=== PATIENT | male | born 1950 | race Caucasian/White ===

== ENCOUNTER 2019-03-30 08:01 | Observation (INO) ==
[~2019-03-30 08:01] MED LIST: CEFAZOLIN 1000MG 1,000 MG/7.5 ML SYR IV SCH; CEFAZOLIN 2000MG 2,000 MG/15 ML SYR IV SCH
[2019-03-30] MEDS ORDERED: LACTATED RINGER'S 1,000 ML IV SCH (08:45)
--- NOTE | 2019-03-30 09:19 | History & Physical Bridge Note ---
Date of Service March 30, 2019 History & Physical Bridge Note I have examined the patient, reviewed the History & Physical and in the interval since the performance of the History & Physical I have noted the following changes of clinical significance: no changes noted
--- NOTE | 2019-03-30 09:20 | Pre Anesthesia Assessment ---
Date of Service March 30, 2019 Pre Sedation Assessment Vital Signs Temp Pulse Resp BP Pulse Ox 03/30/19 08:43 36.5 C 67 18 150/88 H 97 Cardiovascular RRR, no murmur, no edema Respiratory normal respiratory effort, lungs clear to auscultation Pre-Sedation Airway Assessment Smoking Status: Former smoker Hx Sleep Apnea: No Hx Difficult Intubation: No Short, Thick Neck: No Thyromental Distance: < 3.5 Finger Breadths Oral Cavity: + WNL Mallampati Class: II ASA: ASA3 NPO Status Date of Last Intake of Fluids: 03/29/19 Date of Last Intake of Solid Food: 03/29/19 Procedure Planning Contraindications for Sedation: none Current Medications Reviewed: Yes Notes The planned sedation has been discussed with the patient. Informed Consent was obtained. I have identified the patient, determined the appropriateness of sedation and have assessed the patient immediately prior to the procedure. All medicine(s) and interventions are by my order.
[2019-03-30] MEDS ORDERED: BUPIVACAINE 0.25% 30 ML VIAL ONE (09:25)
[2019-03-30] MEDS ORDERED: LIDOCAINE HCL 1% 20 ML VIAL ONE (09:25)
[2019-03-30] MEDS ORDERED: BACITRACIN INJ 50,000 UNIT VIAL ONE (09:25)
[2019-03-30] MEDS ORDERED: fentaNYL citrate 100 MCG/2 ML VIAL ONE ×2 (10:27→11:12)
[2019-03-30] MEDS ORDERED: MIDAZOLAM HCL 5 MG/ML 1 ML VIAL ONE ×2 (10:27→11:12)
--- NOTE | 2019-03-30 12:09 | Post Anesthesia Assessment ---
Date of Service March 30, 2019 Post Sedation Assessment Vital Signs Temp Pulse Resp BP Pulse Ox 03/30/19 08:43 36.5 C 67 18 150/88 H 97 Recovery Score Activity: Moves 4 extremities Respiration: Deep Breath/Cough Circulation: +/-20% PreAnes Value Consciousness: Fully Awake Oxygen Saturation: > 92% On Room Air Discharge Sedation Level of Care: Fast Track Phase II Post Sedation Plan On clinical assessment, the patient appears to have tolerated the sedation without complications. Patient is recovering as anticipated. Patient will continue to be monitored by nursing and may be discharged when sedation discharge criteria are met per below protocol. Upon Completions of procedure and additional 15 minutes continue every 5 minute vital signs and the P.A.R. score; then discharge to a Phase I or Fast Track to Phase II per the following guidelines: * Discharge Patient to appropriate Phase II area if PAR is 8 or greater or return to pre- procedure baseline. The post - procedure orders will be as directed. * If PAR score is less than 8 or not return to pre-procedure baseline then patient will follow Phase I monitoring till PAR is reached for Phase II. The Phase I may be done in procedure room or may call to secure a Phase I area. * If naloxone or flumazenil are used for reversal, hold in Phase I for continued monitoring from when last reversal dose was given for a minimum of 60 minutes or longer pending the nurse and/or physician discretion of patient condition before discharge to Phase II. Please call the Sedation Physician to re-evaluate and complete post-note for discharge to Phase II area. Do NOT discharge from procedure sedation or Phase 1 until post- sedation evaluation note is complete by procedure /sedation MD Sedation Discharge Instructions to be given to the patient at discharge to home.
[2019-03-30] MEDS ORDERED: ACETAMINOPHEN 325 MG TAB PO PRN (12:10)
[2019-03-30] MEDS ORDERED: OXYCODONE/ACETAMINOPHEN 5mg/325mg TAB PO PRN (12:10)
--- NOTE | 2019-03-30 12:10 | Operative Report ---
Post Operative Report Pre & Post Diagnosis CHB, PPM at JESSE, RV pacing lead malfunction Operation Date: 03/30/19 10:00 <No data on this case meets the specified criteria> Procedure Operation Date: 03/30/19 10:00 Actual Procedures p Pacer Gen Change Dual - DO kelly Kirkpatrick Insertion Single Lead Only - DO kelly Kirkpatrick Venogram, Unilateral - Sahara Box DO Surgeon Sahara Box, Museum Exhibit Designer none Estimated Blood Loss 20 Findings Consistent with Post-Op Diagnosis Specimens none Description of Procedure see official report I attest to the content of the Intraoperative Record and any orders documented therein. Any exceptions are noted below.
[2019-03-30] MEDS ORDERED: NITROGLYCERIN SL 0.4 MG/TAB TAB SL PRN (12:11)
--- NOTE | 2019-03-30 12:19 | Discharge Summary ---
Date of Service March 30, 2019 Admission HPI Per Admitting Provider pt admitted due to ppm at JESSE and RV pacing lead malfunction Admission Exam Per Admitting Provider aaox3, NAD NC/AT, EOMI Supple No JVD Nrl S1/S2, No murmur CTA b/l no w/r/r soft nt/nd no LE edema b/l skin intact no focal deficits Principal Diagnosis Pacemaker lead malfunction and pacemaker at JESSE s/p dual chamber generator change and new RV lead insertion Discharge Exam aaox3, NAD NC/AT, EOMI Supple No JVD Nrl S1/S2, No murmur CTA b/l no w/r/r soft nt/nd no LE edema b/l skin intact no focal deficits left pectoral incision intact, no hematoma mild ecchymosis ENMT Mallampati Class: II Respiratory normal respiratory effort, lungs clear to auscultation Cardiovascular RRR, no murmur, no edema Discharge Data Allergies Allergy/AdvReac Type Severity Reaction Status Date / Time No Known Allergies Allergy Unknown _ Verified 03/30/19 08:40 Procedures Performed Operation Date: 03/30/19 10:00 Actual Procedures p Pacer Gen Change Dual - Sahara Box DO s Insertion Single Lead Only - Sahara Box DO s Venogram, Unilateral - Sahara Box DO Ordered Studies CXR: No PTX, leads in position ECG: AV paced Pacemaker Interrogation/Reprogramming: Normal lead testing and stable since implant 03/30/19 10:15 EP Lab Images for PACS ONCE Hospital Course (1) Pacemaker battery depletion: (2) CHB (complete heart block): (3) Pacemaker lead malfunction: Total Time Total Time Spent Total Time Spent (In Minutes): 30 Total Time Includes: Examination of the Patient, Discharge Planning, Medication Reconciliation and Other Discharge Plan Discharge Items Reason For Visit: JESSE, CHB, SADUS,PACER LEAD REVISION Discharge Diagnosis: PPM at JESSE, CHB, RV pacing lead malfunction s/p new RV pacing lead and ppm gent change Condition: Good Discharge Goals: Improve function Activity: As commented below Activity Comment: do not lift the left elbow over the left shoulder for 1 month Lifting: No more than 10 pounds Lifting Comment: do not lift more than 10 pounds with left arm for 2 weeks Bathing: Keep incision dry Bathing Comment: can shower thurs let water run over the incision do not scrub it Sexual Activity: After two weeks Call non-emergency contact if: you have any medication questions Follow-up/Referrals: Alejandro Burch MD [Primary Care Provider] - Add Provider Instructions: device and wound check in [place] as scheduled next week if you notice any swelling call my office immediately Prescriptions: Continued aspirin [Aspirin Low Dose] 81 mg Tablet,Delayed Release (Dr/Ec) 81 mg PO DAILY RF: 0 nitroglycerin [Nitrostat] 0.4 mg Tablet, Sublingual 0.4 mg sublingual DIRECTED PRN (Reason: Chest Pain) RF: 0 cholecalciferol (vitamin D3) [Vitamin D3] 1,000 unit Capsule 1,000 unit PO QAM RF: 0 famotidine 20 mg 20 mg DAILY RF: 0 lisinopril 10 mg PO QAM RF: 0 pravastatin 40 mg QPM RF: 0 Stand-Alone Forms: My [facility] Admission Data Admit Date/Time: 03/30/19 11:41 Attending Provider: Sahara Box Admit Provider: Sahara Box Primary Care Provider: Alejandro Burch Service: Telemetry
[2019-03-30] MEDS ORDERED: PRAVASTATIN SOD 40 MG TAB PO SCH (21:00)
--- NOTE | 2019-03-31 07:44 | XRay Report ---
XR chest 2V routine HISTORY: Status post pacemaker placement. COMPARISON: Chest 06/02/2009. FINDINGS: There is a left-sided pacemaker. The leads appear intact and are likely in good position. N o pneumothorax. No pleural effusions. No evidence for pulmonary edema. The heart is top normal in siz e. IMPRESSION: Status post left-sided pacemaker. No pneumothorax. Electronically signed by: Porter Mcguire M.D. 03/31/2019 7:42 AM
[2019-03-31] MEDS ORDERED: LISINOPRIL 10 MG TAB PO SCH (09:00)
[2019-03-31] MEDS ORDERED: ASPIRIN 81 MG ECTAB PO SCH (09:00)
[2019-03-31] MEDS ORDERED: FAMOTIDINE 20 MG TAB PO SCH (09:00)
[2019-03-31] MEDS ORDERED: CHOLECALCIFEROL 1,000 UNITS TAB PO SCH (09:00)
--- NOTE | 2019-04-07 01:34 | Operative Report ---
DATE OF OPERATION: 03/30/2019 PREOPERATIVE DIAGNOSES: Pacemaker at elective replacement indictor, complete heart block and right ventricular pacing lead malfunction. POSTOPERATIVE DIAGNOSES: Pacemaker at elective replacement indictor, complete heart block and right ventricular pacing lead malfunction. PROCEDURE: Rate responsive dual chamber permanent pacemaker generator change along with new insertion of a right ventricular pacing lead under fluoroscopic guidance along with a peripheral venogram. SURGEON: Sahara Box DO. WEIGHT TRAINING INSTRUCTOR: None. ANESTHESIA: Monitored conscious sedation administered under my supervision by Sanam Schaffer. Start time 10:42, end time 12:04. Total of 6 mg of Versed and 150 mcg of fentanyl. INTRAVENOUS FLUIDS: 42 mL. BLOOD LOSS: 10 mL. IV CONTRAST: 10 mL. ANTIBIOTICS: Two grams of Ancef. URINE OUTPUT: Not applicable. SPECIMENS: None. FINDINGS: See below. DRAINS: None. INDICATIONS: This is a 69-year-old gentleman with past medical history for complete heart block and sinus node dysfunction where he underwent a pacemaker in 2008, coronary artery disease, history of PCI to the LAD in 2008 and 2009, hypertension, hyperlipidemia, gastroesophageal reflux disease, preserved ejection fraction on most recent echocardiogram. His right ventricular pacing lead, which is a 40/92 which is known to sometimes start failing, has been showing high thresholds and impedances so he was recommended once his pacemaker hit JESSE, a pacemaker generator change in addition to a new RV lead implant. CONSENT: Consent was obtained prior to the patient going into the Electrophysiology Lab. The patient was informed of risks, benefits and alternatives to the procedure. Risks include but not limited to sudden cardiac , cardiac arrhythmias, cerebrovascular accident, myocardial infarction, injury to the blood vessels, chamber of the heart, lungs, bleeding and infection. The patient understood these risks and agreed to the procedure as planned. Informed consent was obtained. DESCRIPTION OF THE PROCEDURE: The patient was brought into the Electrophysiology Lab in fasting state. He was connected to continuous equipment monitor phototypesetting. A timeout was performed to ensure patient's identity and procedure correctly. The patient was prepped and draped over the left infraclavicular space in normal surgical standard fashion. Monitored conscious sedation was given throughout the procedure for patient's comfort level. [place] precautions maintained throughout the procedure. 10 mL of 1% lidocaine, bupivacaine mixture were given in the left deltopectoral groove. Incision was made in left deltopectoral groove. Blunt dissection was performed down to identify cephalic vein; however, none could be identified, so a peripheral venogram using 10 mL of contrast diluted in 10 mL of saline was performed to identify the axillary vein. Then needle stick was performed to obtain axillary venous access. A guidewire was inserted without any resistance. An 8-[place] sheath was inserted over the guidewire without any resistance. Guidewire and dilator removed and a new right ventricular pacing lead was advanced into right ventricle and positioned a little bit up on the right ventricular septum. There was adequate pacing and sensing thresholds and no diaphragmatic stimulation in high output pacing. The 8-[place] sheath was peeled away and lead was fixated to pectoralis muscle using 0 silk suture. Then using blunt dissection, the prior pulse generator was identified. The capsule was disrupted using iris scissors. The pulse generator was freed from the capsule and removed from the body. The right atrial lead was tested intraoperatively, see below for results. Then the new right ventricular lead was attached to the new pulse generator making sure that the pins were in appropriate position, passed set screw and set screws were all tightened. Then the same for the right atrial lead was attached to the new pulse generator making sure that the pins were in appropriate position, passed set screw and set screws were all tightened. The old right ventricular lead was capped, then the pocket was expanded and disrupted to allow for new blood flow. The pocket was then flushed with copious amount of bacitracin and saline wash and inspected for hemostasis. The pulse generator was then placed in a Tyrx pouch then being placed in the pocket, making sure that the leads were lying flat beneath the device. A stay stitch using 0 silk suture was used to secure the device to the pectoralis muscle. Kendra stat was placed in the pocket then the incision was closed in 3-layer fashion using 2-0 Vicryl interrupted suture followed by 3-0 Vicryl interrupted suture followed by 4-0 Monocryl running stitch. Dermabond was applied. EQUIPMENT: 1. The explanted generator is a Medtronic SEDR01 Jatin PATRICK, serial #[id number], implanted 06/02/2009. Voltage 2.63 volts, JESSE on 02/27/2019. 2. The new pulse generator is a [employer] Krystle [place] [id number], serial #[id number]. 3. The antibiotic Tyrx pouch, reference number FPCP0784, lot #[id number], expiration 04/21/2019. 4. Right atrial lead 4592-45, serial #[id number], implanted on 06/02/2009. 5. The new right ventricular lead is a Medtronic 5076-58 cm, serial #[id number]. 6. The old capped right ventricular lead is a 4092-52 cm, serial #[id number], implanted on 06/02/2009. 7. The end cap was used to cap the right ventricular, lot [id number], expiration 01/26/2023. INTRAOPERATIVE TESTIN. Right atrial lead: P waves 1 millivolt, impedance 437 ohms, threshold 0.7 volts at 0.4 milliamps. 2. Right ventricular lead: No R-waves as patient has complete heart block. Impedance 969 ohms, threshold 1.4 volts at 0.4 milliamps. FINAL MEASUREMENTS THROUGH THE DEVICE: 1. Right atrial lead: P waves 1 millivolt, impedance 456 ohms, threshold 0.75 volts at 0.4 milliseconds. 2. Right ventricular lead: No R-waves as the patient has complete heart block. Impedance 893 ohms, threshold was 1 volt at 0.4 milliseconds. FINAL PARAMETERS: DDDR, lower rate 60/130. Right atrial amplitude 1.5 volts, pulse width 0.4 milliseconds, sensitivity 0.3 millivolts. Right ventricular amplitude 3.5 volts, pulse width 0.4 milliseconds, sensitivity 1.2 millivolts. IMPRESSION: Successful implantation of a dual chamber rate responsive permanent pacemaker under fluoroscopic guidance where the old right ventricular pacing lead was capped and a new right ventricular lead was inserted and there was a generator change secondary to complete heart block, pacemaker at elective replacement indicator and right ventricular pacing lead malfunction. PLAN: Monitor patient overnight, 12-lead ECG, chest x-ray. He is not allowed to lift left elbow or left shoulder for 1 month. He cannot lift more than 10 pounds with the left arm for 2 weeks. He can shower in 2 days, let water run over incision, do not scrub it. He should follow up in our [place] office for device and wound check in 1 week's time. I attest to the content of the Intraoperative Record and any orders documented therein. Any exception s are noted below.
== END 2019-03-31 09:53 | disposition home or self-care (01) ==
LOC: 2S 08:01 → EP 08:01